=== PATIENT | male | born 1955 | race American Indian/Alaskan Native ===

== ENCOUNTER 2016-05-29 13:33 | Outpatient (CLI) | payer MEDICARE, OTHER ==
--- NOTE | 2016-05-29 15:00 | XRay Report ---
RIGHT HIP RADIOGRAPHS INDICATION: Right hip pain. COMPARISON: None similar at this institution. FINDINGS: AP pelvic and a frontal right hip projection demonstrates mild to moderate right hip narrowing superiorly with mild degenerative spurring of the femoral head laterally as well. Intact hip articulations. Right SI joint sclerosis superiorly. Numerous brachytherapy seeds. Few surgical sutures/jsesica also noted in the right lower quadrant, both medially and laterally. Right hemipelvic phleboliths. Few lower lumbar degenerative changes. Nonobstructive bowel gas pattern. CONCLUSION: Right hip degenerative changes and various other findings, including iatrogenic changes, as above. Thank you for the opportunity to participate in this patient's care.
== END 2016-05-29 13:34 | disposition home or self-care (01) ==
LOC: SPVIMAG 13:33 → EDSEX 13:33 → EDBD 13:33 → SPVIMAG 13:34
PROVIDERS: ATTEND Family Medicine Adult Medicine
DX: M47.896 Other spondylosis, lumbar region (principal); I87.8 Other specified disorders of veins

== ENCOUNTER 2017-04-09 14:53 | Outpatient (CLI) | payer OTHER ==
--- NOTE | 2017-04-09 15:18 | XRay Report ---
XRAY CHEST TWO VIEWS: 04/09/17 14:53:00 CLINICAL: Cough. COMPARISON: None. FINDINGS: Normal heart and pulmonary vessels. A calcified smooth right lower lobe lung nodule measures approximately 1 cm. No other lung nodule or mass. Mild right hilar enlargement with calcifications in the right hilum. No airspace disease or pleural effusion. Aortic tortuosity.The bones and soft tissues are unremarkable. Degenerative change in the spine. IMPRESSION: Old granulomatous disease with a 1 cm right lower lobe lung calcified granuloma.No pneumonia.
== END 2017-04-09 14:54 | disposition home or self-care (01) ==
LOC: SPVIMAG 14:53
PROVIDERS: ATTEND Family Medicine Adult Medicine
DX: J84.10 Pulmonary fibrosis, unspecified (principal); R91.1 Solitary pulmonary nodule; R05 Cough
CPT/HCPCS: 71020